=== PATIENT | male | born 1965 | race Caucasian/White ===

== ENCOUNTER 2021-05-20 16:54 | Inpatient (IN) | payer MEDICAID ==
[~2021-05-20] VITALS: Ht 182.9 cm; Wt 109.5 kg
[2021-05-20] MEDS ORDERED: MORPHINE SULFATE 4 MG/ML CPJ (NOT FOR IM USE) IV STA (17:31)
[2021-05-20 18:41] LABS: BASOPHILS % 0.6 % (0.0-2.0); EOSINOPHILS % 0.4 % (0.0-5.0); HEMATOCRIT. 51.8 % (42.0-52.0); HEMOGLOBIN. 17.8 g/dL (14.0-18.0); LYMPHOCYTES % 16.5 % (20.0-50.0); MEAN CORPUSCULAR HEMOGLOBIN 34.8 pg (28.0-32.0); MEAN CORPUSCULAR VOLUME 101.4 fL (80.0-94.0); MONOCYTES % 5.5 % (2.0-8.0); PLATELET 276 x1000/uL (130-400); RED BLOOD CELL COUNT 5.11 mill/uL (4.7-6.1); RED CELL DISTRIBUTION WIDTH 13.9 % (11.6-14.6)
[2021-05-20 18:54] LABS: CHLORIDE 101 mEq/L (98-107)
[2021-05-20 18:58] LABS: PROTHROMBIN TIME 10.3 sec (9.6-11.0)
[2021-05-20] MEDS ORDERED: SODIUM CHLORIDE 0.9% 1,000 ML IV ONE (20:00)
[2021-05-20] MEDS ORDERED: MORPHINE SULFATE 2 MG/ML CPJ (NOT FOR IM USE) IV NR (21:00)
[2021-05-20 21:26] LABS: CHLORIDE 103 mEq/L (98-107)
[2021-05-20] MEDS ORDERED: IOHEXOL-300 100 ML BOTTLE ONE (22:49)
[2021-05-21] VITALS (8 sets, daily range): BP systolic 114–142; BP diastolic 66–87
[2021-05-21] MEDS ORDERED: MORPHINE SULFATE 10 MG/ML CPJ IV NR
[2021-05-21] MEDS ORDERED: DEXTROSE 50% WATER 50ML SYRINGE IV PRN (02:15)
[2021-05-21] MEDS ORDERED: DIPHENHYDRAMINE 50MG/ML VIAL IV PRN (02:15)
[2021-05-21] MEDS ORDERED: ONDANSETRON HCL 4MG/2ML INJ IV PRN (02:15)
[2021-05-21] MEDS ORDERED: HYDRALAZINE 20MG/ML VIAL IV PRN (02:15)
[2021-05-21 04:36] LABS: BASOPHILS % 0.3 % (0.0-2.0); EOSINOPHILS % 0.7 % (0.0-5.0); HEMATOCRIT. 46.4 % (42.0-52.0); HEMOGLOBIN. 15.8 g/dL (14.0-18.0); LYMPHOCYTES % 26.6 % (20.0-50.0); MEAN CORPUSCULAR HEMOGLOBIN 34.5 pg (28.0-32.0); MEAN PLATELET VOLUME 7.3 fl (7.4-10.4); MONOCYTES % 6.8 % (2.0-8.0); NEUTROPHILS % 65.6 % (40.0-76.0); PLATELET 254 x1000/uL (130-400); RED BLOOD CELL COUNT 4.59 mill/uL (4.7-6.1); RED CELL DISTRIBUTION WIDTH 14.1 % (11.6-14.6)
[2021-05-21 04:42] LABS: CHLORIDE 106 mEq/L (98-107)
[2021-05-21] MEDS: MORPHINE SULFATE 2 MG/ML CPJ (NOT FOR IM USE) IV PRN ×4 (04:58→22:32)
[2021-05-21 06:33] LABS: CLARITY URINE CLEAR (CLEAR); COLOR URINE DARK YELLOW (YELLOW); KETONES URINE NEGATIVE (NEGATIVE); LEUKOCYTE ESTERASE URINE NEGATIVE (NEGATIVE); NITRITE URINE NEGATIVE (NEGATIVE); OCCULT BLOOD URINE NEGATIVE (NEGATIVE); PROTEIN URINE 1+ (NEGATIVE); SPECIFIC GRAVITY URINE 1.071 (1.005-1.030)
[2021-05-21] MEDS: BLOOD SUGAR DIAGNOSTIC STRIP TEST SCH ×4 (07:20→21:00)
[2021-05-21] MEDS: INSULIN LISPRO 100 UNITS/ML SUBCUT SCH ×4 (09:46→21:00)
[2021-05-21] MEDS: PANTOPRAZOLE SODIUM 40 MG/VIAL IV SCH (13:43)
[2021-05-21] MEDS: DEXT 5%/0.45% NACL 1000ML 1,000 ML IV SCH ×3 (16:19→18:00)
[2021-05-21] MEDS: ENOXAPARIN 30MG/0.3ML SYR SUBCUT SCH (18:00)
[2021-05-21] MEDS ORDERED: NALOXONE HCL 0.4MG/ML VIAL IV PRN (22:15)
[2021-05-22 03:45] VITALS: BP 125/86
[2021-05-22] MEDS: MORPHINE SULFATE 2 MG/ML CPJ (NOT FOR IM USE) IV PRN ×4 (03:48→18:58)
[2021-05-22] MEDS: DEXT 5%/0.45% NACL 1000ML 1,000 ML IV SCH ×3 (03:52→19:25)
[2021-05-22] MEDS: BLOOD SUGAR DIAGNOSTIC STRIP TEST SCH ×4 (06:47→20:33)
[2021-05-22] MEDS: ENOXAPARIN 30MG/0.3ML SYR SUBCUT SCH ×2 (06:47→17:53)
[2021-05-22 08:00] VITALS: BP 114/74
[2021-05-22] MEDS: INSULIN LISPRO 100 UNITS/ML SUBCUT SCH ×4 (09:33→20:33)
[2021-05-22] MEDS: PANTOPRAZOLE SODIUM 40 MG/VIAL IV SCH (09:34)
[2021-05-22 12:10] VITALS: BP 118/78
[2021-05-22 16:00] VITALS: BP 118/81
[2021-05-22 20:00] VITALS: BP 124/72
[2021-05-22] MEDS ORDERED: ENOXAPARIN 40MG/0.4ML SYR SUBCUT SCH (21:00)
[2021-05-23] VITALS: BP 112/39
[2021-05-23] MEDS: MORPHINE SULFATE 2 MG/ML CPJ (NOT FOR IM USE) IV PRN ×3 (00:24→09:24)
[2021-05-23] MEDS: DEXT 5%/0.45% NACL 1000ML 1,000 ML IV SCH ×2 (02:44→10:26)
[2021-05-23 04:00] VITALS: BP 119/86
[2021-05-23] MEDS: ENOXAPARIN 30MG/0.3ML SYR SUBCUT SCH (05:46)
[2021-05-23] MEDS: BLOOD SUGAR DIAGNOSTIC STRIP TEST SCH ×2 (06:47→12:20)
[2021-05-23 08:00] VITALS: BP 117/72
[2021-05-23] MEDS: PANTOPRAZOLE SODIUM 40 MG/VIAL IV SCH (09:23)
[2021-05-23] MEDS: INSULIN LISPRO 100 UNITS/ML SUBCUT SCH ×2 (09:25→12:50)
[2021-05-23 11:47] VITALS: BP 117/72
[2021-05-23 12:00] VITALS: BP 123/83
== END 2021-05-23 15:24 | disposition left against medical advice (07) | DRG 254 ==
LOC: ER 16:54 → MICUSO 05-21 00:24 → 6WST 05-21 05:23
PROVIDERS: ADMIT Internal Medicine; ATTEND Internal Medicine
DX: K43.6 Other and unspecified ventral hernia with obstruction, without gangrene (principal); F17.200 Nicotine dependence, unspecified, uncomplicated; I10 Essential (primary) hypertension; N28.1 Cyst of kidney, acquired; R73.9 Hyperglycemia, unspecified; Z90.49 Acquired absence of other specified parts of digestive tract
CPT/HCPCS: 36415; 74018; 74177; 80048; 80053; 81003; 82962; 83036; 83605; 85025; 99291; C9113; J1650; J1815; J2270; J2405; Q9967